=== PATIENT | male | born 1945 | race Caucasian/White ===

== ENCOUNTER → 2021-04-06 | Outpatient (CLI) | payer OTHER ==
--- NOTE | 2021-04-06 22:59 | RAD ---
STUDY: US DPLX VENOUS EXTREMITY LOWER LT INDICATION: Left leg pain and swelling. DVT. TECHNIQUE: Color-flow and pulsed wave duplex ultrasound with compression of venous structures of the left lower extremity. COMPARISON: None. FINDINGS: Duplex ultrasound with compression of the deep venous structures of the left lower extremity from the common femoral vein through the popliteal vein is negative for DVT. The posterior tibial and peroneal veins are segmentally visualized and patent where seen. Normal veno us waveforms and augmentation are noted throughout. The assessed superficial veins are patent. Lower extremity edema becoming most apparent below the knee. IMPRESSION: No deep venous thrombosis throughout the left lower extremity. Electronically signed by: PATI MON MD (04/06/2021 10:57 PM) [facility]
== END ==
LOC: US 22:01
PROVIDERS: ATTEND Neuromusculoskeletal Medicine & OMM
DX: I87.1 Compression of vein (principal); R60.0 Localized edema; Z85.51 Personal history of malignant neoplasm of bladder; Z85.46 Personal history of malignant neoplasm of prostate
CPT/HCPCS: 93971